=== PATIENT | female | born 1955 | race Caucasian/White ===

== ENCOUNTER 2017-03-15 09:28 | Emergency (ER) | payer OTHER ==
[~2017-03-15] VITALS: Ht 167.6 cm; Wt 73.5 kg
[~2017-03-15 09:28] MED LIST: ALBU90OI INH; ALBU90OI61 INH; ATOR40TA PO; Accuneb1.25 MG/3 INH; Ativan1 MG PO; BENZ100A PO; BUDE10.22; Desyrel150 MG; EXTRA STRENGTH500 MG PO; FLONASE ALLERG9.9 ML; FLUT.05NI; HYDHCL25 PO; LEVSOD88; LITH300C PO; LITH300ER PO; LORA1 PO; MECL12.5 PO; MECL25 PO; METF500C PO; MIRT30 PO; Norco 5-325 Ta1 EACH PO; OMEP20ER PO; PARO10 PO; PROM25 PO; Prednisone20 MG PO; QUET100 PO; QUET25 PO; QUET300 PO; Synthroid112 MCG PO; TRAZ100 PO; Zithromax250 MG PO
[2017-03-15] MEDS ORDERED: Zyprexa10 MG PO (09:40)
[2017-03-15] MEDS ORDERED: PROM25 PO (09:40)
[2017-03-15] MEDS ORDERED: Prednisone20 MG PO (10:40)
== END 2017-03-15 10:47 | disposition home or self-care (01) ==
LOC: ER 09:28
DX: G51.0 Bell's palsy (principal); E11.43 Type 2 diabetes mellitus with diabetic autonomic (poly)neuropathy; K31.84 Gastroparesis; J44.9 Chronic obstructive pulmonary disease, unspecified; E03.9 Hypothyroidism, unspecified; F31.9 Bipolar disorder, unspecified; Z79.899 Other long term (current) drug therapy; Z90.721 Acquired absence of ovaries, unilateral; Z87.891 Personal history of nicotine dependence
CPT/HCPCS: 70450; 99284

== ENCOUNTER → 2017-12-23 | Outpatient (CLI) | payer OTHER ==
[~2017-12-23] MED LIST changes: +Zyprexa10 MG PO
[2017-12-23 15:46] LABS: Source, Urine Clean Catch
[2017-12-23 15:57] LABS: Appearance, Urine Hazy (Clear); Bilirubin, Urine Neg (Neg); Blood, Urine 2+ (Neg); Color, Urine Yellow (P-Yellow); Glucose Qualitative, Urine Neg (Neg); Ketones, Urine 1+ (Neg); Leukocyte Esterase, Urine Neg (Neg); Nitrite, Urine Neg (Neg); Protein, Urine 2+ (Neg); Urobilinogen, Urine NORM (Normal)
[2017-12-23 16:13] LABS: Bacteria Rare /hpf; Squamous Epithelial Cells Mod /hpf (Few)
[2017-12-23 16:14] LABS: Mucus Light (0-Heavy)
== END ==
LOC: LAB SHORT 15:44 → LAB 15:44
PROVIDERS: Family Medicine
DX: N39.0 Urinary tract infection, site not specified (principal)
CPT/HCPCS: 81001; 87086

== ENCOUNTER 2018-04-06 12:23 | Day surgery (SDC) | payer OTHER ==
[~2018-04-06] VITALS: Ht 167.6 cm; Wt 75.3 kg
[~2018-04-06 12:23] MED LIST changes: +ALBU2.5V5 NEB; +BUDE6HFA INH; +CLON.5 PO; +Crestor40 MG PO; +LEVSOD100 PO; +OLAN5 PO; +Omeprazole20 M1 PO; +Prozac40 MG PO; +TRAZ150T57 PO
--- NOTE | 2018-04-06 13:57 | NUR ---
04/06/18 5381 Bailee Mehta PT. INFORMED THAT WOULD BE APRROX. 20 MORE MINUTES. PT. GIVEN A WARM BLANKET & CALL LIGHT IS WITHIN REACH. PT. LOOKING AT HER PHONE WITH HER EAR PHONES IN HER EARS.
--- NOTE | 2018-04-06 16:34 | NUR ---
04/06/18 1634 Heaven Herrera LATE ENTRY FOR TODAY AT 1516 15ML NORMAL SALINE USED TO ELEVATE HEPATIC FLEXURE POLYP
--- NOTE | 2018-04-06 16:37 | NUR ---
04/06/18 1637 Heaven Herrera LATE ENTRY FOR RECOVERY TIME PATIENT REFUSED MULTIPLE OFFERS OF PO FLUIDS.
== END 2018-04-06 16:24 | disposition home or self-care (01) ==
LOC: ORSCSDS 12:23
PROVIDERS: Internal Medicine Gastroenterology
PROC: 0DBN8ZX Excision of Sigmoid Colon, Via Natural or Artificial Opening Endoscopic, Diagnostic (ICD-10-PCS; principal; 2018-04-06 14:00)
PROC: 0DB98ZX Excision of Duodenum, Via Natural or Artificial Opening Endoscopic, Diagnostic (ICD-10-PCS; principal; 2018-04-06 14:00)
PROC: 0DBA8ZX Excision of Jejunum, Via Natural or Artificial Opening Endoscopic, Diagnostic (ICD-10-PCS; principal; 2018-04-06 14:00)
PROC: 0DBM8ZX Excision of Descending Colon, Via Natural or Artificial Opening Endoscopic, Diagnostic (ICD-10-PCS; principal; 2018-04-06 14:00)
PROC: 0DBL8ZX Excision of Transverse Colon, Via Natural or Artificial Opening Endoscopic, Diagnostic (ICD-10-PCS; principal; 2018-04-06 14:00)
PROC: 0DB68ZX Excision of Stomach, Via Natural or Artificial Opening Endoscopic, Diagnostic (ICD-10-PCS; principal; 2018-04-06 14:00)
DX: R10.84 Generalized abdominal pain (principal); R19.7 Diarrhea, unspecified; D12.4 Benign neoplasm of descending colon; D12.3 Benign neoplasm of transverse colon; D12.5 Benign neoplasm of sigmoid colon; K44.9 Diaphragmatic hernia without obstruction or gangrene; K64.8 Other hemorrhoids; F41.9 Anxiety disorder, unspecified; K59.00 Constipation, unspecified; G47.00 Insomnia, unspecified; E03.9 Hypothyroidism, unspecified; E11.9 Type 2 diabetes mellitus without complications; R11.2 Nausea with vomiting, unspecified; R14.0 Abdominal distension (gaseous); R12 Heartburn; K21.9 Gastro-esophageal reflux disease without esophagitis; J44.9 Chronic obstructive pulmonary disease, unspecified; F31.9 Bipolar disorder, unspecified; G40.909 Epilepsy, unspecified, not intractable, without status epilepticus; Z85.118 Personal history of other malignant neoplasm of bronchus and lung; Z79.84 Long term (current) use of oral hypoglycemic drugs; Z79.899 Other long term (current) drug therapy; Z87.19 Personal history of other diseases of the digestive system
CPT/HCPCS: 82947; 88305; 88342; J2250; J2405; J7120

== ENCOUNTER 2019-04-12 08:07 | Day surgery (SDC) | payer OTHER ==
[~2019-04-12] VITALS: Ht 167.6 cm; Wt 72.9 kg
[~2019-04-12 08:07] MED LIST changes: +ALBU90OI; +Accuneb1.25 MG/3; +PREG150
== END 2019-04-12 10:45 | disposition home or self-care (01) ==
LOC: ORSCSDS 08:07
PROVIDERS: Internal Medicine Gastroenterology
PROC: 0DBL8ZX Excision of Transverse Colon, Via Natural or Artificial Opening Endoscopic, Diagnostic (ICD-10-PCS; principal; 2019-04-12 10:00)
PROC: 0DBK8ZX Excision of Ascending Colon, Via Natural or Artificial Opening Endoscopic, Diagnostic (ICD-10-PCS; principal; 2019-04-12 10:00)
PROC: 0DBM8ZX Excision of Descending Colon, Via Natural or Artificial Opening Endoscopic, Diagnostic (ICD-10-PCS; principal; 2019-04-12 10:00)
PROC: 0DBP8ZX Excision of Rectum, Via Natural or Artificial Opening Endoscopic, Diagnostic (ICD-10-PCS; principal; 2019-04-12 10:00)
PROC: 0DBN8ZX Excision of Sigmoid Colon, Via Natural or Artificial Opening Endoscopic, Diagnostic (ICD-10-PCS; principal; 2019-04-12 10:00)
DX: Z86.010 Personal history of colon polyps (principal); D12.2 Benign neoplasm of ascending colon; D12.3 Benign neoplasm of transverse colon; K63.5 Polyp of colon; K62.1 Rectal polyp; K64.8 Other hemorrhoids; J43.9 Emphysema, unspecified; E11.40 Type 2 diabetes mellitus with diabetic neuropathy, unspecified; E78.5 Hyperlipidemia, unspecified; E11.65 Type 2 diabetes mellitus with hyperglycemia; J44.9 Chronic obstructive pulmonary disease, unspecified; F17.210 Nicotine dependence, cigarettes, uncomplicated; Z79.899 Other long term (current) drug therapy; E03.9 Hypothyroidism, unspecified; Z79.84 Long term (current) use of oral hypoglycemic drugs
CPT/HCPCS: 82947; 88305; J2704; J7120

== ENCOUNTER → 2020-07-05 | Outpatient (CLI) | payer OTHER ==
[~2020-07-05] MED LIST changes: -ALBU90OI; +ALBUTEROL1.25 MG/3 IH; -Accuneb1.25 MG/3; +GLIP5ER; +GLUCOPHAGE1000 M1 PO
[2020-07-12 08:10] LABS: HPV 16 Negative (Negative); HPV 18 Negative (Negative); HPV OTHER HR TYPES Negative (Negative)
== END | disposition home or self-care (01) ==
LOC: LAB 16:32 → LAB SHORT 16:32
PROVIDERS: Nurse Practitioner Family
DX: Z12.72 Encounter for screening for malignant neoplasm of vagina (principal); Z11.51 Encounter for screening for human papillomavirus (HPV)
CPT/HCPCS: 87624; G0145

== ENCOUNTER 2021-09-25 13:28 | Day surgery (SDC) | payer OTHER ==
[~2021-09-25] VITALS: Ht 167.6 cm; Wt 60.0 kg
== END 2021-09-25 16:04 | disposition home or self-care (01) ==
LOC: ORSCSDS 13:28
PROVIDERS: Internal Medicine Gastroenterology
PROC: 0DB68ZX Excision of Stomach, Via Natural or Artificial Opening Endoscopic, Diagnostic (ICD-10-PCS; principal; 2021-09-25 14:45)
DX: K92.0 Hematemesis (principal); K31.7 Polyp of stomach and duodenum; K44.9 Diaphragmatic hernia without obstruction or gangrene; E11.43 Type 2 diabetes mellitus with diabetic autonomic (poly)neuropathy; K31.84 Gastroparesis; F31.9 Bipolar disorder, unspecified; F32.A Depression, unspecified; R56.9 Unspecified convulsions; J44.9 Chronic obstructive pulmonary disease, unspecified; E03.9 Hypothyroidism, unspecified; G51.0 Bell's palsy; Z79.84 Long term (current) use of oral hypoglycemic drugs; Z79.899 Other long term (current) drug therapy
CPT/HCPCS: 82947; A9270; J0330; J0461; J2405; J2704; J7120